=== PATIENT | male | born 1975 | race Caucasian/White ===

== ENCOUNTER 2020-04-18 17:53 | Emergency (ER) | payer OTHER, SELFPAY ==
[2020-04-18 17:54] VITALS: BP 122/34; PULSE 116; RESP 15; TEMP 37.3; O2SAT 96; BMI 25.8
[2020-04-18] MEDS: Ibuprofen 600 MG Tablet PO (18:24)
--- NOTE | 2020-04-18 18:30 | RAD_ITS ---
STUDY: X-RAY - RIGHT KNEE REASON FOR EXAM: Male, 44 years old. Right knee pain starting today, no injury TECHNIQUE: 4 view(s) of the knee. COMPARISON: None. FINDINGS: Normal visualized distal femur. Normal visualized proximal tibia and fibula. Normal proximal tibiofibular articulation. There is no demonstrated fracture. Normal medial femorotibial compartment. Normal lateral femorotibial compartment. Normal patellofemoral articulation. There is no demonstrated joint effusion. The soft tissue structures are unremarkable. RAD/Knee 4 or More Views IMPRESSION: Normal x-ray examination of the knee. Electronically Signed: Anuj Hays MD at 18:42 EDT , Service support ,
--- NOTE | 2020-04-18 19:20 | ED.DCSUM_ITS ---
- ER Visit Summary Date of Service: 04/18/20 Chief Complaint: Back and right leg pain History of Present Illness: The patient is a [address] Dotson. He reports that he has chronic back pain that is been worse for the past 2 weeks. He describes it as sharp, throbbing pain is 10 of 10 at worst 9-10 currently. Is worsened by nothing. She relieved by remaining still. He has not taken anything for this. He denies any ration to his legs. No numbness or weakness. No problems with his bowels or his bladder. No groin numbness. Patient reports that 2 days ago he lost his balance and a boat and fell injuring his right leg. He fell again today while mowing the lawn. He did have a blow to the head. No loss of consciousness. Is not on anticoagulants. He complains of an aching pain in his right leg that is 7 and 10 with movement 5 out of 10 at rest. He denies any other injuries or complaints. Physical Examination: Vitals: Stable. Afebrile. Neck: No vertebral tenderness. Full ROM without difficulty. Cleared by NEXUS criteria. Back: Mild diffuse tenderness outpatient lumbar spine paraspinous muscular and lumbar region bilaterally. He has no point tenderness. Negative straight leg raise bilaterally. 5 out of 5 dorsiflexion, plantarflexion, extensor looses longus bilaterally. Normal sensation light touch throughout. General: A&O x 3. NAD. Cardiovascular exam: Regular rate and rhythm, no murmur, rub or gallop. Respiratory exam: Chest nontender. No crepitus. Clear to auscultation bilaterally. No wheezes or stridor. Abdominal exam: Soft, nontender, nondistended, normal bowel sounds. No pain in RUQ or LUQ specifically. No peritoneal signs. Extremity: Abrasion just distal to the lateral portion of his right knee. Moderate tenderness palpation over the fibular head. No pain or ligamentous instability with anterior/posterior drawer. No pain or ligamentous instability with medial/lateral stress. Negative Fitz bilaterally. No pain with range of motion. Test Results: Clinical Impression(s) from Imaging Studies Knee X-Ray 04/18/20 18:30 IMPRESSION: Normal x-ray examination of the knee. Electronically Signed: Anuj Hays MD at 18:42 EDT , Service support , Emergency Department Course and Treatment: Patient refused x-rays of his back and states this is something is been dealing with for 20 years. He was given ibuprofen p.o. He is resting comfortably. Treatment Plan: Patient refused pain medications for home. He is instructed on symptomatic care. Instructed use Tylenol and/or ibuprofen for pain as needed. He will be discharged instructed to follow-up his primary care physician in 2 days as previously scheduled. Return to the emergency department for any worsening symptoms. Disposition: To home in improved and stable condition. Impression: 1. Chronic low back pain. 2. Right leg pain, acute. This note was generated with [employer] dictation software. It may contain incorrect words, spelling, and punctuation that were not noted in review of the chart prior to signing ED Disposition - Plan for ED Patient: Disposition: Home or Assisted Living Instructions: ED Back Pain Acute or Chronic, ED Knee Pain [facility] Referrals: Uche Dickens DO [Primary Care Provider] - Keep Liu appointment
[2020-04-18 19:30] VITALS: RESP 14
== END 2020-04-18 19:31 | disposition home or self-care (01) ==
LOC: ED 18:45
PROVIDERS: Emergency Provider Emergency Medicine; PCP Family Medicine
DX: M54.5 Low back pain (principal); M79.604 Pain in right leg; F17.200 Nicotine dependence, unspecified, uncomplicated
CPT/HCPCS: 73564; 99283